=== PATIENT | female | born 1960 | race Caucasian/White ===

== ENCOUNTER 2022-06-01 14:04 | Observation (INO) | payer OTHER ==
[~2022-06-01] VITALS: Ht 152.4 cm; Wt 55.9 kg
[2022-06-01 14:33] LABS: BASO # 0.1 K/mm3 (0.0-0.2); BASO % 1.4 % (0.0-2.0); EOS # 0.1 K/mm3 (0.0-0.7); EOS % 0.9 % (0.0-4.0); GRAN # 3.4 K/mm3 (1.4-6.5); GRAN % 51.5 % (42.2-75.2); HEMATOCRIT 42.8 % (37.0-47.0); HEMOGLOBIN 14.6 g/dl (12.5-16.0); LYMPH # 2.6 K/mm3 (1.2-3.4); LYMPH % 38.5 % (20.0-51.0); MEAN CELL VOLUME 93 fl (80.0-100.0); MEAN CORPUSCULAR HEMOGLOBIN 32 pg (27-31); MEAN CORPUSCULAR HGB CONC 34 g/dl (33.0-37.0); MEAN PLATELET VOLUME 10.9 fl (7.4-10.4); MONO # 0.5 K/mm3 (0.1-0.6); MONO % 7.5 % (1.7-9.3); PLATELET COUNT 172 K/mm3 (130-400); RED BLOOD COUNT 4.62 M/mm3 (4.10-5.30); REDCELL DISTRIBUTION WIDTH-CV 13.2 % (11.5-14.5)
[2022-06-01 14:44] LABS: INR 1.1 (0.8-3.0)
[2022-06-01 14:48] LABS: ALANINE AMINOTRANSFERASE 18 U/L (0-55); ALBUMIN 4.5 gm/dL (3.4-4.8); ALKALINE PHOSPHATASE 81 U/L (40-150); ANION GAP 12 mmol/L (7-16); AST,SGOT 20 U/L (5-34); BLOOD UREA NITROGEN 12 mg/dL (10-20); CALCIUM 9.8 mg/dL (8.4-10.2); CARBON DIOXIDE 21 mmol/L (23-31); CHLORIDE 110 mmol/L (98-107); CREATINE KINASE 91 U/L (29-168); CREATININE, serum 0.71 mg/dL (0.57-1.11); GLUCOSE 82 mg/dL (70-99); LIPASE 31 U/L (8-78); POTASSIUM 3.6 mmol/L (3.5-4.5); SODIUM 143 mmol/L (136-145); TOTAL PROTEIN 7.5 gm/dL (6.2-8.1)
[2022-06-01 14:54] LABS: TROPONIN-I < 0.010 ng/mL (0.00-0.033)
[2022-06-01] MEDS ORDERED: ASPIRIN E.C. 8181 MG PO (15:05)
[2022-06-01] MEDS ORDERED: XANAX .25M0.25 MG/TA PO (15:05)
[2022-06-01] MEDS ORDERED: RT ADVAIR 128 DISKUS IH (15:05)
[2022-06-01] MEDS ORDERED: PLAVIX 75MG TAB75 MG PO (15:06)
[2022-06-01] MEDS ORDERED: LIPITOR 40MG TA40 MG PO (15:06)
[2022-06-01] MEDS ORDERED: LEXAPRO 10MG10 MG PO (15:07)
[2022-06-01] MEDS ORDERED: PRINIVIL5 MG PO (15:07)
[2022-06-01] MEDS ORDERED: RESTORIL 1515 MG/CAP (15:08)
[2022-06-01] MEDS ORDERED: SINGULAIR 110 MG/TAB PO (15:08)
[2022-06-01] MEDS ORDERED: MULTI-VITAMIN W1 TA1 PO (15:08)
[2022-06-01 18:30] VITALS: BP 144/56; PULSE 57; TEMP 98.3
[2022-06-01 20:28] VITALS: BP 130/78; PULSE 57; TEMP 98.2
[2022-06-02] VITALS (18 sets, daily range): BP systolic 92–150; BP diastolic 46–76; PULSE 49–74; TEMP 97.8–98.3
[2022-06-02 04:47] LABS: BASO # 0.1 K/mm3 (0.0-0.2); BASO % 1.2 % (0.0-2.0); EOS # 0.1 K/mm3 (0.0-0.7); EOS % 1.7 % (0.0-4.0); GRAN # 2.9 K/mm3 (1.4-6.5); GRAN % 48.1 % (42.2-75.2); LYMPH # 2.5 K/mm3 (1.2-3.4); LYMPH % 41.4 % (20.0-51.0); MEAN CELL VOLUME 93 fl (80.0-100.0); MEAN CORPUSCULAR HGB CONC 33 g/dl (33.0-37.0); MEAN PLATELET VOLUME 11.2 fl (7.4-10.4); MONO # 0.4 K/mm3 (0.1-0.6); MONO % 7.4 % (1.7-9.3); PLATELET COUNT 153 K/mm3 (130-400); RED BLOOD COUNT 3.92 M/mm3 (4.10-5.30); REDCELL DISTRIBUTION WIDTH-CV 13.2 % (11.5-14.5)
[2022-06-02 05:00] LABS: CREATININE, serum 0.63 mg/dL (0.57-1.11); POTASSIUM 3.4 mmol/L (3.5-4.5)
[2022-06-02 05:24] LABS: HEMATOCRIT 36.5 % (37.0-47.0); MEAN CORPUSCULAR HEMOGLOBIN 31 pg (27-31)
[2022-06-02 05:25] LABS: HEMOGLOBIN 12.2 g/dl (12.5-16.0)
--- NOTE | 2022-06-02 09:27 | NUR ---
SW met with the patient to discuss discharge plan. Her daughter, Angelica Gross (ph#[phone]), was on speaker phone. The patient's residence is in [place], [place]; but she lives with her daughter (Angelica), son-in-law, and two grandchildren in [place]. She reports independence with ADLs and does not have any DME. The patient's PCP is Dr. José Antonio Lucio and she receives her medications from [facility] in . The patient does not have a DPOA-HC and she was not interested in completing one at this time. She states that she is and has five children: Angelica, Shea Chirinos, Faiza Morrison, Asael Lindquist, and Chucho Lindquist. The patient plans to return home with her family upon discharge. No additional needs at this time. *Discharge plan: home with family*
--- NOTE | 2022-06-02 15:18 | NUR ---
See merge for all medication, assessment, intervention, and vital sign times.
--- NOTE | 2022-06-02 16:17 | NUR ---
See merge for all medication, assessment, intervention, and vital sign times.
--- NOTE | 2022-06-02 20:00 | NUR ---
Assessment complete. A&Ox4. Denies pain/nausea/shortness of breath. VS stable. Report from day shift that Band had a small amount of active bleeding noted so no air has been released yet. This nurse released 3mls at this time. No active bleeding noted at this time. Plan of care discussed for this shift to include vital signs and air release if able. Verbalizes understanding. Call light in reach. Will monitor.
--- NOTE | 2022-06-02 20:30 | NUR ---
2mls of air released from band.
--- NOTE | 2022-06-02 21:29 | NUR ---
3mls of air removed from radial band at this time
--- NOTE | 2022-06-02 22:00 | NUR ---
3mls of air released from band.
--- NOTE | 2022-06-02 23:00 | NUR ---
2 mls of air released from band. Had some drainage noted earlier in shift so air removed slowly. No hematoma noted and no increase in drainage. Will re-assess and remove at next check.
--- NOTE | 2022-06-03 00:10 | NUR ---
Radial band removed and bandaid applied per dr order. No hematoma noted.
[2022-06-03 00:15] VITALS: BP 112/58; PULSE 68; TEMP 98.2
[2022-06-03 01:15] VITALS: BP 115/76; PULSE 66; TEMP 98.1
--- NOTE | 2022-06-03 01:30 | NUR ---
Bandaid remains clean dry and intact. No hematoma noted.
[2022-06-03 03:57] VITALS: BP 111/47; PULSE 52; TEMP 98
[2022-06-03 04:12] VITALS: BP 111/47; PULSE 52; TEMP 98
--- NOTE | 2022-06-03 05:33 | NUR ---
Patient had an uneventful night. Denied pain/nausea/shortness of breath. VS remain stable. Radial band removed and bandaid on without hematoma/bleeding. Denies current needs. Call light in reach. Will monitor.
[2022-06-03 07:00] LABS: BASO # 0.1 K/mm3 (0.0-0.2); EOS # 0.1 K/mm3 (0.0-0.7); EOS % 1.2 % (0.0-4.0); GRAN # 3.2 K/mm3 (1.4-6.5); GRAN % 52.8 % (42.2-75.2); HEMOGLOBIN 12.3 g/dl (12.5-16.0); LYMPH # 2.3 K/mm3 (1.2-3.4); LYMPH % 37.6 % (20.0-51.0); MEAN CELL VOLUME 92 fl (80.0-100.0); MEAN CORPUSCULAR HEMOGLOBIN 32 pg (27-31); MEAN CORPUSCULAR HGB CONC 35 g/dl (33.0-37.0); MEAN PLATELET VOLUME 11.2 fl (7.4-10.4); MONO # 0.4 K/mm3 (0.1-0.6); MONO % 7.2 % (1.7-9.3); PLATELET COUNT 157 K/mm3 (130-400); RED BLOOD COUNT 3.87 M/mm3 (4.10-5.30); REDCELL DISTRIBUTION WIDTH-CV 13.4 % (11.5-14.5)
[2022-06-03 07:02] VITALS: BP 115/70; PULSE 54; TEMP 98.3
[2022-06-03 07:02] LABS: HEMATOCRIT 35.4 % (37.0-47.0)
[2022-06-03 07:17] LABS: CREATININE, serum 0.65 mg/dL (0.57-1.11); POTASSIUM 3.8 mmol/L (3.5-4.5)
[2022-06-03 07:34] LABS: CALCIUM 9.1 mg/dL (8.4-10.2)
--- NOTE | 2022-06-03 10:00 | NUR ---
ALL DISCHARGE INSTRUCTIONS AND EDUCATOIN GIVEN. PATIENT AWARE OF FOLLOW UP APPOINTMENTS. ALL BELONGINGS WITH PATIENT. BOTH IVS REMOVED. AND TELE TAKEN OFF.
--- NOTE | 2022-06-03 10:15 | NUR ---
PATIENT LEFT IN STABLE CONDITION WITH HER DAUGHTER. NO COMPLAINTS
== END 2022-06-03 10:15 | disposition home or self-care (01) ==
LOC: COL.ER 14:04 → SURG 15:51
PROVIDERS: Emergency Medicine; Internal Medicine; Physician Assistant; ADMIT Student in an Organized Health Care Education/Training Program
DX: I25.110 Atherosclerotic heart disease of native coronary artery with unstable angina pectoris (principal); I10 Essential (primary) hypertension; I25.2 Old myocardial infarction; E87.6 Hypokalemia; F32.A Depression, unspecified; G47.00 Insomnia, unspecified; Z95.5 Presence of coronary angioplasty implant and graft; Z79.899 Other long term (current) drug therapy; Z79.02 Long term (current) use of antithrombotics/antiplatelets; Z87.891 Personal history of nicotine dependence
CPT/HCPCS: C1769; G0378; J1644; J3480